=== PATIENT | male | born 1995 | race Caucasian/White ===

== ENCOUNTER 2017-03-19 15:43 | Emergency (ER) | payer OTHER ==
[~2017-03-19] VITALS: Ht 172.7 cm; Wt 60.2 kg
[2017-03-19 15:54] VITALS: Ht 172.7 cm; Wt 60.2 kg
[2017-03-19 15:58] VITALS: O2SAT 100
[2017-03-19] MEDS ORDERED: ACETAMINOPHEN 500 MG TAB PO STA (16:08)
[2017-03-19] MEDS ORDERED: SODIUM CHLORIDE 0.9% 1000ML 1,000 ML IV STA ×2 (16:08)
--- NOTE | 2017-03-19 16:22 | EMERGENCY ROOM VISIT NOTE ---
History Report prepared by Giovanni: Young Montgomery Under the Supervision of: Dr. Sampson Smith M.D. First contact with patient: 16:03 Chief Complaint: SEIZURE Stated Complaint: SEIZURE Nursing Triage Summary: whitnessed seizure lasting two minutes, no previous hx of History of Present Illness The patient is a 22 year old male who presents to the Emergency Room with complaints of a resolved seizure that occurred prior to arrival. The patient states that he does not remember seizing. He reports that he did not do anything different today than any other day, and he felt normal. The patient notes that he has been drinking water and eating, but it may not have been enough. He states that he has been sleeping properly, and he does not use medication to stay awake. The patient denies a history of seizures. He reports that he remembers putting his cloths in the dryer, sitting on a bench, and texting someone on his phone. The patient notes that he woke up to two police officers asking him if he was okay. He states that it mey like he bit his tongue, and he was nauseous, vomited twice, and experienced a headache. He notes that he still has a headache, but it has decreased since he arrived. The patient denies urinating in his pants, chest pain, shortness of breath, and heavy alcohol use. He reports that he does use marijuana; the last time he smoked was yesterday, and he has been using it for 4 years. EMS states the patient seized for about 2 minutes, received 4mg of Zofran, and his blood glucose was 116. Source of History: patient, EMS Onset: prior to arrival Position: other (global) Quality: other (seizure) Timing: resolved Associated Symptoms: + headache, + nausea, + vomiting, No chest pain, No SOB Note: Associated symptoms: bitting tongue Denies: urinating his pants Review of Systems See HPI for pertinent positives & negatives. A total of 10 systems reviewed and were otherwise negative. Past Medical & Surgical Medical Problems: (1) No Known Active Medical Problems Family History Patient reports no known family medical history. Social History Smoking Status: Current Every Day Smoker Alcohol Use: none Drug Use: marijuana Occupation Status: [employer] student Current/Historical Medications Scheduled Lisdexamfetamine Dimesylate (Vyvanse), 40 MG PO DAILY Sertraline (Zoloft), 25 MG PO DAILY Sertraline (Zoloft), 50 MG PO DAILY Scheduled PRN Mirtazapine (Mirtazapine), 7.5 MG PO HS PRN for Sleep Allergies Coded Allergies: Cat Dander (Verified Allergy, Unknown, Unknown, 03/19/17) Dog Dander (Verified Allergy, Unknown, Unknown, 03/19/17) Physical Exam Vital Signs Date Time Temp Pulse Resp B/P (MAP) Pulse Ox O2 Delivery O2 Flow Rate FiO2 03/19/17 18:18 36.5 98 18 125/61 95 03/19/17 17:43 94 20 03/19/17 17:31 128/64 03/19/17 17:13 104 16 99 03/19/17 17:00 119/59 03/19/17 16:52 122/70 03/19/17 16:13 103 13 99 03/19/17 16:00 108/72 03/19/17 15:58 100 03/19/17 15:54 36.5 94 18 123/74 100 Room Air 03/19/17 15:52 91 03/19/17 15:51 123/74 Physical Exam GENERAL: Patient is in no acute distress. HEENT: No acute trauma, normocephalic atraumatic, mucous membranes moist, no nasal congestion, no scleral icterus. No obvious tongue bite. NECK: No stridor, no adenopathy, no meningismus, trachea is midline. LUNGS: Clear to auscultation bilaterally, no wheeze, no rhonchi, breath sounds equal. HEART: Without murmurs gallops or rubs, regular rate and rhythm. ABDOMEN: Soft, nontender, bowel sounds positive, no hernias, no peritonitis. EXTREMITIES: No cyanosis or edema, full range of motion of all the joints without pain or difficulty, no signs for acute trauma. NEUROLOGIC: Oriented x 3, no acute motor or sensory deficits, no focal weakness. SKIN: No rash, no jaundice, no diaphoresis. Medical Decision & Procedures ER Provider Diagnostic Interpretation: CT results as stated below per my review and radiologist interpretation: HEAD WITHOUT CONTRAST (CT) CT DOSE: 537.48 mGy.cm HISTORY: Mental status change EVALUATE ALTERED MENTAL STATUS/WEAKNESS TECHNIQUE: Multiaxial CT images of the head were performed without the use of intravenous contrast. A dose lowering technique was utilized adhering to the principles of ALARA. Comparison: None. Findings: The paranasal sinuses and mastoid air cells are clear. The calvarium and skull base are intact. The ventricles and sulci are within normal limits. There is no mass, hematoma, midline shift, or acute infarct. Impression: No acute intracranial abnormality. The above report was generated using voice recognition software. It may contain grammatical, syntax or spelling errors. Electronically signed by: Juan Marie M.D. 03/19/2017 4:46 PM Dictated Date/Time: 03/19/2017 4:45 PM Laboratory Results 03/19/17 16:34 Red Blood Count 5.23, Mean Corpuscular Volume 91.8, Mean Corpuscular Hemoglobin 31.9, Mean Corpuscular Hemoglobin Concent 34.8, Mean Platelet Volume 9.4, Neutrophils (%) (Auto) 84.8, Lymphocytes (%) (Auto) 9.6, Monocytes (%) (Auto) 4.3, Eosinophils (%) (Auto) 0.8, Basophils (%) (Auto) 0.1, Neutrophils # (Auto) 10.36, Lymphocytes # (Auto) 1.17, Monocytes # (Auto) 0.53, Eosinophils # (Auto) 0.10, Basophils # (Auto) 0.01 03/19/17 16:34 Test 03/19/17 16:34 03/19/17 17:40 White Blood Count 12.22 K/uL (4.8-10.8) Red Blood Count 5.23 M/uL (4.7-6.1) Hemoglobin 16.7 g/dL (14.0-18.0) Hematocrit 48.0 % (42-52) Mean Corpuscular Volume 91.8 fL (80-100) Mean Corpuscular Hemoglobin 31.9 pg (25-34) Mean Corpuscular Hemoglobin Concent 34.8 g/dl (32-36) Platelet Count 217 K/uL (130-400) Mean Platelet Volume 9.4 fL (7.4-10.4) Neutrophils (%) (Auto) 84.8 % Lymphocytes (%) (Auto) 9.6 % Monocytes (%) (Auto) 4.3 % Eosinophils (%) (Auto) 0.8 % Basophils (%) (Auto) 0.1 % Neutrophils # (Auto) 10.36 K/uL (1.4-6.5) Lymphocytes # (Auto) 1.17 K/uL (1.2-3.4) Monocytes # (Auto) 0.53 K/uL (0.11-0.59) Eosinophils # (Auto) 0.10 K/uL (0-0.5) Basophils # (Auto) 0.01 K/uL (0-0.2) RDW Standard Deviation 43.5 fL (36.4-46.3) RDW Coefficient of Variation 13.1 % (11.5-14.5) Immature Granulocyte % (Auto) 0.4 % Immature Granulocyte # (Auto) 0.05 K/uL (0.00-0.02) Anion Gap 6.0 mmol/L (3-11) Est Creatinine Clear Calc Drug Dose 98.7 ml/min Estimated GFR () 123.3 Estimated GFR (Non- 106.4 BUN/Creatinine Ratio 10.3 (10-20) Calcium Level 8.7 mg/dl (8.5-10.1) Total Bilirubin 0.4 mg/dl (0.2-1) Aspartate Amino Transf (AST/SGOT) 18 U/L (15-37) Alanine Aminotransferase (ALT/SGPT) 24 U/L (12-78) Alkaline Phosphatase 80 U/L (45-117) Total Creatine Kinase 110 U/L (39-308) Total Protein 7.5 gm/dl (6.4-8.2) Albumin 4.1 gm/dl (3.4-5.0) Globulin 3.4 gm/dl (2.5-4.0) Albumin/Globulin Ratio 1.2 (0.9-2) Thyroid Stimulating Hormone (TSH) 4.970 uIu/ml (0.300-4.500) Ethyl Alcohol mg/dL < 3.0 mg/dl (0-3) Urine Opiates Screen NEG (NEG) Urine Methadone, Qualitative NEG (NEG) Urine Barbiturates NEG (NEG) Urine Phencyclidine (PCP) Level NEG (NEG) Ur Amphetamine/Methamphetamine POS (NEG) MDMA (Ecstasy) Screen NEG (NEG) Urine Benzodiazepines Screen POS (NEG) Urine Cocaine Metabolite NEG (NEG) Urine Marijuana (THC) POS (NEG) Laboratory results reviewed by me. Medications Administered Medications (Trade) Dose Ordered Sig/Ren Route Start Time Stop Time Status Last Admin Dose Admin Sodium Chloride 1,000 ml @ 999 mls/hr Q1H1M STAT IV 03/19/17 16:08 03/19/17 17:08 DC 03/19/17 16:08 999 MLS/HR Sodium Chloride 1,000 ml @ 200 mls/hr Q5H STAT IV 03/19/17 16:08 03/19/17 18:42 DC 03/19/17 16:08 200 MLS/HR Acetaminophen (Tylenol Tab) 1,000 mg NOW STAT PO 03/19/17 16:08 03/19/17 16:12 DC 03/19/17 16:08 1,000 MG ECG Indication: other (seizure) Rate (beats per minute): 104 Rhythm: sinus tachycardia Findings: no acute ischemic change, no ectopy ED Course 1605: The patient was evaluated in room C03. A complete history and physical exam was performed. 1608: Ordered Acetaminophen 1000mg PO, Sodium Chloride 1000 ml @ 200 mls/hr IV, Sodium Chloride 1000 ml @ 999 mls/hr IV 1711: I reevaluated the patient and updated him of his CT scan results. 1747: I discussed the patient's case with Dr. Rollins, Neurology. He will evaluate the patient as an outpatient. 1752: Reevaluated the patient. Discussed results and discharge instructions: he verbalized understanding and agreement. The patient is ready for discharge. 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 Medical Decision The patient is a 22 year old male who presents to the ED with complaints of a seizure. Differential diagnoses considered include seizure disorder, electrolyte imbalance, dehydration, fatigue, intracranial mass. There is a mild leukocytosis, this is likely from the seizure activity reported. No significant anemia. No significant electrolyte abnormality, kidney failure or hepatitis. TSH was very slightly elevated. Urine tox shows amphetamines, benzos and marijuana-of note, the patient is prescribed amphetamines. Alcohol level was undetectable. Total CK was not elevated. Brain CT shows no acute bleed or mass effect. The patient is not febrile or toxic. His neurologic exam is normal and nonfocal. The patient received IV saline, he was given oral Tylenol for a headache. He is resting comfortably. I spoke to neurology. The patient is being discharged, he cannot drive, swim or bike. I did formally take his license. The patient is to follow with neurology for further testing and workup. He was encouraged to return here for a second event. His presentation today was consistent with seizure. Consults Time Called: 1741 Consulting Physician: Dr. Rollins, Neurology Returned Call: [phone] I discussed the patient's case with Dr. Rollins, Neurology. He will evaluate the patient as an outpatient. Impression Primary Impression: Seizure Scribe Attestation The scribe's documentation has been prepared under my direction and personally reviewed by me in its entirety. I confirm that the note above accurately reflects all work, treatment, procedures, and medical decision making performed by me. Departure Information Dispostion Home / Self-Care Referrals Mata Rollins M.D. Forms HOME CARE DOCUMENTATION FORM, IMPORTANT VISIT INFORMATION Patient Instructions My [facility] [place] Additional Instructions no driving, bike riding, swimming for now stay well hydrated proper sleep and rest stop the marijuana use call and set up neurology appt for further testing and clearance return for return of symptoms or if worsening workup today was all ok as we discussed
--- NOTE | 2017-03-19 16:47 | DIAGNOSTIC IMAGING REPORT ---
HEAD WITHOUT CONTRAST (CT) CT DOSE: 537.48 mGy.cm HISTORY: Mental status change EVALUATE ALTERED MENTAL STATUS/WEAKNESS TECHNIQUE: Multiaxial CT images of the head were performed without the use of intravenous contrast. A dose lowering technique was utilized adhering to the principles of ALARA. Comparison: None. Findings: The paranasal sinuses and mastoid air cells are clear. The calvarium and skull base are intact. The ventricles and sulci are within normal limits. There is no mass, hematoma, midline shift, or acute infarct. Impression: No acute intracranial abnormality. The above report was generated using voice recognition software. It may contain grammatical, syntax or spelling errors. Electronically signed by: Juan Marie M.D. 03/19/2017 4:46 PM Dictated Date/Time: 03/19/2017 4:45 PM
[2017-03-19 16:50] LABS: BASO % 0.1 %; BASO ABS # 0.01 K/uL (0-0.2); COMPLETE YES; EOS % 0.8 %; IG% 0.4 %; LYMPH % 9.6 %; LYMPH ABS # 1.17 K/uL (1.2-3.4); MEAN CELL VOLUME 91.8 fL (80-100); MEAN CORPUSCULAR HEMOGLOBIN 31.9 pg (25-34); MEAN CORPUSCULAR HGB CONC 34.8 g/dl (32-36); MEAN PLATELET VOLUME 9.4 fL (7.4-10.4); MONO % 4.3 %; NEUT % 84.8 %; PLATELET COUNT 217 K/uL (130-400); RED BLOOD COUNT 5.23 M/uL (4.7-6.1); WHITE BLOOD COUNT 12.22 K/uL (4.8-10.8)
[2017-03-19 17:14] LABS: BUN/CREATININE RATIO 10.3 (10-20); CALCIUM 8.7 mg/dl (8.5-10.1); POTASSIUM 3.5 mmol/L (3.5-5.1)
[2017-03-19 17:25] LABS: ALB/GLOB RATIO 1.2 (0.9-2); THYROID STIMULATING HORMONE 4.97 uIu/ml (0.300-4.500)
[2017-03-19] MEDS ORDERED: SERT50TA PO (17:44)
[2017-03-19] MEDS ORDERED: MIRT1TAB27 PO (17:44)
[2017-03-19] MEDS ORDERED: LISD40CA PO (17:44)
[2017-03-19] MEDS ORDERED: SERT25TA PO (17:44)
[2017-03-19 18:18] VITALS: BP 125/61; PULSE 98; TEMP 36.5; O2SAT 95
[2017-03-19 18:22] LABS: BENZODIAZEPINE, URINE POS (NEG); COCAINE,URINE NEG (NEG); PHENCYCLIDINE, URINE NEG (NEG)
[2017-03-22 13:47] LABS: HYDROXYETHYLFLURAZEPAM CONF NEGATIVE NG/ML (CUTOFF=50); HYDROXYMIDAZOLAM NEGATIVE NG/ML (CUTOFF=50); HYDROXYTRIAZOLAM CONF NEGATIVE NG/ML (CUTOFF=50); TEMAZEPAM CONF NEGATIVE NG/ML (CUTOFF=50)
== END 2017-03-19 18:19 | disposition home or self-care (01) ==
LOC: C.EDC 15:45
DX: R56.9 Unspecified convulsions (principal); F17.210 Nicotine dependence, cigarettes, uncomplicated; F12.90 Cannabis use, unspecified, uncomplicated; Z79.899 Other long term (current) drug therapy

== ENCOUNTER → 2017-04-21 | Outpatient (CLI) | payer OTHER ==
[~2017-04-21] MED LIST: GADAVIST IV PRN; LISD40CA PO; MIRT1TAB27 PO; SERT25TA PO; SERT50TA PO
--- NOTE | 2017-04-21 12:56 | DIAGNOSTIC IMAGING REPORT ---
MRI OF THE BRAIN COMBO CLINICAL HISTORY: Seizure. COMPARISON STUDY: CT of the brain dated 03/19/2017. TECHNIQUE: MRI of the brain was performed utilizing various T1 and T2-weighted sequences in the axial, sagittal, and coronal planes. Contrast-enhanced sequences were acquired following the administration of 6.5 cc of Gadavist. The examination is performed using the seizure protocol. FINDINGS: Brain parenchyma: The brain parenchyma is normal in appearance. There is no hemorrhage or mass effect. There is no restricted diffusion to suggest acute ischemia. No enhancing mass lesion is identified on the postcontrast images. Jose-white matter differentiation is preserved. No extra-axial fluid collection is seen. The cerebellar tonsils are normal in configuration. Ventricles, sulci, and cisterns: Normal in configuration. Pituitary and sella: Unremarkable. Intracranial vasculature: Normal flow voids are maintained at the skull base. Orbits: The bony orbits are grossly intact. Orbital contents are normal in appearance. Sinuses and mastoids: Clear. Calvarium: A small hemangioma is suggested in the clivus. No destructive calvarial lesion is seen. Cervical cord: Partially visualized cervical spinal cord is normal in morphology and signal intensity. IMPRESSION: No acute intracranial abnormality. Electronically signed by: Sampson Olivares M.D. 04/21/2017 12:55 PM Dictated Date/Time: 04/21/2017 12:37 PM
== END | disposition home or self-care (01) ==
LOC: C.MRIBC 11:41
PROVIDERS: ATTEND Psychiatry & Neurology Neurology
DX: R56.9 Unspecified convulsions (principal)

== ENCOUNTER → 2017-04-21 | Outpatient (CLI) | payer OTHER ==
[~2017-04-21] MED LIST changes: -GADAVIST IV PRN
--- NOTE | 2017-04-21 14:54 | EEG Procedure Note ---
EEG Procedure Note Date of Service Apr 21, 2017. Start / End Times Start Time: 10:31 AM End Time: 10:53 AM Referring Physician Mata Rollins History This is a 22-year-old male with a recent seizure. EEG for further evaluation of possible seizure etiology. Home Medication List Scheduled Lisdexamfetamine Dimesylate (Vyvanse), 40 MG PO DAILY Sertraline (Zoloft), 25 MG PO DAILY Sertraline (Zoloft), 50 MG PO DAILY Scheduled PRN Mirtazapine (Mirtazapine), 7.5 MG PO HS PRN for Sleep Description This is a 21 electrode EEG with a single channel dedicated to limited EKG. The electrodes were placed in accordance with the International 10-20 system. At the start of the recording the patient was in an awake state. Background was well organized and composed of symmetric mixed alpha and beta frequencies. There was a symmetric well-formed moderate amplitude 10-11 Hz posterior dominant rhythm that was reactive to eye opening and closure. Hyperventilation was not done. Intermittent photic stimulation at various frequencies produced no abnormalities. There was no stage changes or sleep transients. Interpretation This is a normal awake only routine EEG. There was no electrographic seizures or epileptiform discharges. Clinical Correlation A normal EEG does not rule out epilepsy if there is a strong clinical suspicion.
== END | disposition home or self-care (01) ==
LOC: C.NEUR 10:18
PROVIDERS: ATTEND Psychiatry & Neurology Neurology
DX: R56.9 Unspecified convulsions (principal)